=== PATIENT | female | born 1960 | race Caucasian/White ===

== ENCOUNTER 2016-08-25 19:27 | Emergency (ER) | payer OTHER ==
[2016-08-25] MEDS ORDERED: Sodium Chloride 0.9% 1000 ML 1,000 ML IV STA (19:40)
[2016-08-25] MEDS ORDERED: Phenergan 25 MG INJ IV ONE (19:40)
--- NOTE | 2016-08-25 19:58 | ERPHSYRPT ---
- History of Present Illness Time Seen by Provider: 08/25/16 19:30 Source: patient Exam Limitations: no limitations Patient Subjective Stated Complaint: reports some dizziness et inner ear pain since last night and through the day today - states that when she turns her head , it feels like there is glass shattering in her ear - also reports some intermittent confusion x 4 days, as noticed per her son Triage Nursing Assessment: ambulatory to treatment area - limping, slow gait - moves all extremities with mild weakness. alert/oriented x3 - pupils ALEXX: 5mm. skin pwd - no rash/injury. resps easy - non-labored Physician History: FOR THE PAST 4 DAYS PT HAS BEEN CONFUSED; FOR THE PAST 18 HOURS DIZZINESS AND A RIGHT EARACHE. PT DENIES CHEST PAIN, SHORTNESS OF AIR, FEVER. Allergies/Adverse Reactions: sulfamethoxazole [From Bactrim] Allergy (Verified 08/25/16 19:34) Sore Throat roof of mouth raw Home Medications: Cyclobenzaprine HCl 10 mg [Flexeril 10 MG] 10 mg PO TID PRN 05/01/14 [ History] Famotidine 20 mg [Pepcid 20 MG] 20 mg PO BID 05/01/14 [History] Gabapentin 600 mg PO BID 05/01/14 [History] Duloxetine HCl 30 mg [Cymbalta 30 MG Capsule] 30 mg PO DAILY 12/10/14 [ History] Levothyroxine Sodium 100 mcg PO DAILY 06/11/15 [History] Meloxicam 15 mg [Meloxicam 15 MG] 7.5 mg PO BID PRN PRN 06/11/15 [History] Omeprazole 20 MG [Prilosec 20 mg] 20 mg PO BID 06/11/15 [History] Metformin HCl 500 mg [Glucophage 500 MG] 500 mg PO BID 01/13/16 [History] Fluvoxamine Maleate 100 mg PO HS 02/20/16 [History] Lurasidone HCl [Latuda] 80 mg PO HS 02/20/16 [History] Nitroglycerin [Nitrostat] 0.4 mg SL PRN 02/20/16 [History] Hx Tetanus, Diphtheria Vaccination/Date Given: Yes Hx Influenza Vaccination/Date Given: No Hx Pneumococcal Vaccination/Date Given: No Immunizations Up to Date: Yes - Review of Systems Ears, Nose, & Throat: Ear Pain Neurological: Dizziness, Other (CONFUSION) All Other Systems: Reviewed and Negative - Past Medical History Pertinent Past Medical History: Yes Neurological History: No Pertinent History ENT History: Cataracts Cardiac History: Arrhythmia Respiratory History: COPD Endocrine Medical History: Diabetes Type II, Hypothyroidism Musculoskeletal History: Degenerative Disk Disease, Osteoporosis, Rheumatoid Arthritis GI Medical History: Irritable Bowel History: Other Psycho-Social History: Depression Female Reproductive Disorders: Other Other Medical History: PVCs, cath's self to void, since back broken in 2001 pt can not void on her own, schitzoaffective disorder - Past Surgical History Past Surgical History: Yes Neuro Surgical History: No Pertinent History Cardiac: No Pertinent History Respiratory: No Pertinent History Gastrointestinal: Cholecystectomy Genitourinary: No Pertinent History Musculoskeletal: Orthopedic Surgery Female Surgical History: Hysterectomy, Tubal Ligation Other Surgical History: THROAT CYST - LUMBAR - lul CARPEL TUNNEL - CATARACT REMOVAL - bilateral, cervical Ca - Social History Smoking Status: Former smoker Exposure to second hand smoke: No Drug Use: none Patient Lives Alone: No Significant Family History: no pertinent family hx - Female History Hx Last Menstrual Period: n/a Hx Now: No - Nursing Vital Signs Nursing Vital Signs: Initial Vital Signs Temperature 99.1 F Pulse Rate 76 Respiratory Rate 14 Blood Pressure [] 106/46 Pain Intensity 0 - Physical Exam General Appearance: alert Eye Exam: PERRL/EOMI Ears, Nose, Throat Exam: TMs normal, dry mucous membranes Neck Exam: normal inspection Respiratory Exam: lungs clear Cardiovascular Exam: normal heart sounds Gastrointestinal/Abdomen Exam: soft, normal bowel sounds Back Exam: normal range of motion Extremity Exam: normal range of motion, No pedal edema Neurologic Exam: alert, cooperative, normal mood/affect, other (ORIENTED X3) Skin Exam: No rash SpO2 Interpretation: normal SpO2: 95 Oxygen Delivery: Room Air - Course Nursing assessment & vital signs reviewed: Yes EKG Interpreted by Me: RATE (74), Sinus Rhythm, NORMAL AXIS, NORMAL INTERVALS - Radiology Exams Chest X-ray Interpretation: Interpreted by me, No Pneumonia Ordered Tests: Active Orders 24 hr Category Date Time Status ACCUCHECK [Accucheck] STAT Care 08/25/16 19:45 Active EKG-ER Only STAT Care 08/25/16 19:40 Active IV Insertion STAT Care 08/25/16 19:40 Active cath [Cath for Specimen-Straight] STAT Care 08/25/16 19:56 Active CHEST 1 VIEW (PORTABLE) Stat Exams 08/25/16 19:40 Taken AMYLASE Stat Lab 08/25/16 20:02 Completed CBC W DIFF Stat Lab 08/25/16 20:02 Completed CMP Stat Lab 08/25/16 20:02 Completed LIPASE Stat Lab 08/25/16 20:02 Completed MAGNESIUM Stat Lab 08/25/16 20:02 Completed [place] Screen Stat Lab 08/25/16 20:02 Completed TROPONIN Stat Lab 08/25/16 20:02 Completed Urine Triage Profile Stat Lab 08/25/16 19:55 Completed Medication Summary Generic Name Dose Route Start Last Admin Trade Name Freq PRN Reason Stop Dose Admin Magnesium Sulfate/Dextrose 100 mls @ 200 mls/hr 08/25/16 20:45 Magnesium 1 Gm / 100 Ml D5w IV 08/25/16 21:14 STAT ONE Discontinued Medications Generic Name Dose Route Start Last Admin Trade Name Freq PRN Reason Stop Dose Admin Sodium Chloride 1,000 mls @ 999 mls/hr 08/25/16 19:40 08/25/16 20:07 Sodium Chloride 0.9% 1000 Ml IV 08/25/16 20:40 999 mls/hr .Q1H1M STA Administration Sodium Chloride Confirm 08/25/16 20:05 Sodium Chloride 0.9% 1000 Ml Administered 08/25/16 20:06 Dose 1,000 mls @ ud .ROUTE .STK-MED ONE Promethazine HCl 12.5 mg 08/25/16 19:40 08/25/16 20:09 Phenergan 25 Mg Inj IV 08/25/16 19:41 12.5 mg STAT ONE Administration Promethazine HCl Confirm 08/25/16 20:05 Phenergan 25 Mg Inj Administered 08/25/16 20:06 Dose 25 mg .ROUTE .STK-MED ONE Lab/Rad Data: Laboratory Result Diagrams 08/25/16 20:02 08/25/16 20:02 Laboratory Results 08/25/16 08/25/16 08/25/16 Range/Units 20:02 20:02 20:02 WBC 5.6 (4.0-10.5) K/mm3 RBC 5.47 H (4.1-5.4) M/mm3 Hgb 14.1 (12.0-16.0) gm/dl Hct 43.6 (35-47) % MCV 79.7 (78-100) fl MCH 25.7 L (26-32) pg MCHC 32.3 (32-36) g/dl RDW 16.7 H (11.5-14.0) % Plt Count 203 (150-450) K/mm3 MPV 9.6 H (6-9.5) fl Gran % 61.6 (36.0-66.0) % Lymphocytes % 27.8 (24.0-44.0) % Monocytes % 5.6 (0.0-12.0) % Eosinophils % 4.3 (0.00-5.0) % Basophils % 0.7 (0.0-0.4) % Basophils # 0.04 (0-0.4) Sodium 137 (136-145) mEq/L Potassium 3.6 (3.5-5.1) mEq/L Chloride 100 (98-107) mEq/L Carbon Dioxide 27.8 (21-32) mEq/L Anion Gap 12.5 (5-15) MEQ/L BUN 10 (9-20) mg/dL Creatinine 1.22 (0.55-1.30) mg/dl Estimated GFR 49 ML/MIN Glucose 125 H (70-110) MG/DL Calcium 9.0 (8.5-10.1) mg/dL Magnesium 1.4 L (1.8-2.4) mg/dL Total Bilirubin 0.3 (0.2-1.0) mg/dL AST 36 (15-37) U/L ALT 39 (12-78) U/L Alkaline Phosphatase 89 (46-116) U/L Troponin I < 0.017 (0.000-0.056) ng/ml Serum Total Protein 8.1 (6.4-8.2) gm/dL Albumin 3.4 (3.4-5.0) g/dL Amylase 50 (25-115) U/L Lipase 133 (73-393) U/L Urine Opiates Level (NEGATIVE) Ur Methadone (NEGATIVE) Urine Barbiturates (NEGATIVE) Ur Phencyclidine (PCP) (NEGATIVE) Urine Amphetamine (NEGATIVE) U Benzodiazepine Level (NEGATIVE) Urine Cocaine (NEGATIVE) Urine Marijuana (THC) (NEGATIVE) Monoscreen NEGATIVE (Negative) 08/25/16 Range/Units 19:55 WBC (4.0-10.5) K/mm3 RBC (4.1-5.4) M/mm3 Hgb (12.0-16.0) gm/dl Hct (35-47) % MCV (78-100) fl MCH (26-32) pg MCHC (32-36) g/dl RDW (11.5-14.0) % Plt Count (150-450) K/mm3 MPV (6-9.5) fl Gran % (36.0-66.0) % Lymphocytes % (24.0-44.0) % Monocytes % (0.0-12.0) % Eosinophils % (0.00-5.0) % Basophils % (0.0-0.4) % Basophils # (0-0.4) Sodium (136-145) mEq/L Potassium (3.5-5.1) mEq/L Chloride (98-107) mEq/L Carbon Dioxide (21-32) mEq/L Anion Gap (5-15) MEQ/L BUN (9-20) mg/dL Creatinine (0.55-1.30) mg/dl Estimated GFR ML/MIN Glucose (70-110) MG/DL Calcium (8.5-10.1) mg/dL Magnesium (1.8-2.4) mg/dL Total Bilirubin (0.2-1.0) mg/dL AST (15-37) U/L ALT (12-78) U/L Alkaline Phosphatase (46-116) U/L Troponin I (0.000-0.056) ng/ml Serum Total Protein (6.4-8.2) gm/dL Albumin (3.4-5.0) g/dL Amylase (25-115) U/L Lipase (73-393) U/L Urine Opiates Level NEG. (NEGATIVE) Ur Methadone NEG. (NEGATIVE) Urine Barbiturates NEG. (NEGATIVE) Ur Phencyclidine (PCP) NEG. (NEGATIVE) Urine Amphetamine NEG. (NEGATIVE) U Benzodiazepine Level NEG. (NEGATIVE) Urine Cocaine NEG. (NEGATIVE) Urine Marijuana (THC) NEG. (NEGATIVE) Monoscreen (Negative) - Departure Time of Disposition: 20:49 Departure Disposition: Home Clinical Impression: DIZZINESS, DM, HYPOTHYROIDISM, RA, IBS, DEPRESSION, SCHIZOAFFECTIVE DISORDER, HYPOMAGNESEMIA, COPD Condition: Fair Critical Care Time: No Referrals: ZAN JIN [Primary Care Provider] - Instructions: Vertigo Additional Instructions: FOLLOW UP WITH PRIVATE DOCTOR TOMORROW. Prescriptions: Meclizine HCl 25 mg [Antivert 25 mg] 25 mg PO Q8H PRN PRN #30 tablet PRN Reason: Dizziness
[2016-08-25 20:05] LABS: BASOPHIL % 0.7 % (0.0-0.4); Eosinophil % 4.3 % (0.00-5.0); Granulocytes % 61.6 % (36.0-66.0); Lymphocytes % 27.8 % (24.0-44.0); Mean Cell Volume 79.7 fl (78-100); Mean Platelet Volume 9.6 fl (6-9.5); Monocytes % 5.6 % (0.0-12.0); Platelet Count 203 K/mm3 (150-450); Red Blood Count 5.47 M/mm3 (4.1-5.4); Red Cell Distribution Width 16.7 % (11.5-14.0); White Blood Count 5.6 K/mm3 (4.0-10.5)
[2016-08-25] MEDS ORDERED: Phenergan 25 MG INJ ONE (20:05)
[2016-08-25] MEDS ORDERED: Sodium Chloride 0.9% 1000 ML 1,000 ML ONE (20:05)
[2016-08-25 20:06] LABS: Mean Corpuscular Hemoglobin 25.7 pg (26-32)
[2016-08-25 20:28] LABS: ALBUMIN 3.4 g/dL (3.4-5.0); ALKALINE PHOSPHATASE 89 U/L (46-116); ANION GAP 12.5 MEQ/L (5-15); BILIRUBIN,TOTAL 0.3 mg/dL (0.2-1.0); BLOOD UREA NITROGEN 10 mg/dL (9-20); CHLORIDE 100 mEq/L (98-107); Carbon Dioxide 27.8 mEq/L (21-32); Glucose 125 MG/DL (70-110); LIPASE 133 U/L (73-393); MAGNESIUM 1.4 mg/dL (1.8-2.4); Potassium 3.6 mEq/L (3.5-5.1); SGOT/AST 36 U/L (15-37); SGPT/ALT 39 U/L (12-78); SODIUM 137 mEq/L (136-145); Total Protein 8.1 gm/dL (6.4-8.2)
[2016-08-25 20:31] LABS: TROPONIN < 0.017 ng/ml (0.000-0.056)
[2016-08-25] MEDS ORDERED: Magnesium 1 Gm / 100 Ml D5W*** 100 ML IV ONE ×2 (20:45→20:50)
[2016-08-25 21:07] LABS: Collection Type CLEAN CATCH; Ph 5.5 (5-6)
[2016-08-25 21:08] LABS: Bacteria FEW /HPF (NEGATIVE); COMPLETE URINE MICROSCOPIC? YES; Epithelial Cells FEW /HPF (FEW)
[2016-08-25] MEDS ORDERED: Macrobid 100MG Capsule PO ONE (21:14)
[2016-08-25] MEDS ORDERED: Macrobid 100MG Capsule ONE (21:18)
[2016-08-25 21:26] VITALS: BP 104/62; PULSE 83; O2SAT 98
--- NOTE | 2016-08-26 09:30 | XRAY ---
Indication: Dizziness. Comparison: May 14, 2010 Portable chest remains clear. Heart is not enlarged. Vascularity normal. Bony thorax intact. Impression: Stable nonacute chest.
== END 2016-08-25 21:26 | disposition home or self-care (01) ==
LOC: ED 19:27
DX: N39.0 Urinary tract infection, site not specified (principal); R42 Dizziness and giddiness; E11.9 Type 2 diabetes mellitus without complications; E03.9 Hypothyroidism, unspecified; M06.9 Rheumatoid arthritis, unspecified; K58.9 Irritable bowel syndrome, unspecified; F32.9 Major depressive disorder, single episode, unspecified; F20.9 Schizophrenia, unspecified; E83.42 Hypomagnesemia; J44.9 Chronic obstructive pulmonary disease, unspecified; R41.0 Disorientation, unspecified; H92.01 Otalgia, right ear; Z79.84 Long term (current) use of oral hypoglycemic drugs; Z79.899 Other long term (current) drug therapy
CPT/HCPCS: 36000; 36415; 71010; 80053; 80307; 81000; 82150; 82962; 83690; 83735; 84484; 85025; 86308; 87086; 93005; 96360; 96361; 96365; 96374; 99284; J2550; J3475; P9612

== ENCOUNTER 2017-04-08 14:43 | Emergency (ER) | payer MEDICAID, OTHER ==
[2017-04-08 14:50] VITALS: PULSE 80; O2SAT 94
[2017-04-08] MEDS ORDERED: TORAdol 30 mg Injection IM ONE (14:57)
[2017-04-08] MEDS ORDERED: Norflex 60 MG/2 ML IM ONE (14:58)
--- NOTE | 2017-04-08 15:02 | ERPHSYRPT ---
- History of Present Illness Time Seen by Provider: 04/08/17 14:53 Source: patient Patient Subjective Stated Complaint: back pain had back surgery in 2001 this pain feels identicle to that Triage Nursing Assessment: patietn brought in by ambulance able to slide over to bed form [place], alert and orientedx3, pupilsperrla3, lung sounds clear, pulses present bialteral radius and pedal, bowel sounds present x4, no deformities noted on back so freckles and a mole no other abnormalities noted. Physician History: CC: back pain Hx: 56 y/o patient of Dr Bradshaw with remote hx of lumbar fusion surgery. She has low back pain to her legs since Saturday (3 days). No fever or chills. Chronic incontinence is unchanged. Remote hx of cervical cancer. No abd pain. Pain moderate severe and worse with movement. Aching in nature. She takes ultram , norco, and flexeril. She has diabetes and reports good control. Back Pain Location: lumbar spine Severity of Pain-Max: moderate Severity of Pain-Current: moderate Allergies/Adverse Reactions: sulfamethoxazole [From Bactrim] Allergy (Verified 08/25/16 19:34) Sore Throat roof of mouth raw Home Medications: Cyclobenzaprine HCl 10 mg [Cyclobenzaprine 10 MG] 10 mg PO TID PRN [History] Famotidine 20 mg [Pepcid 20 MG] 20 mg PO BID 05/01/14 [History] Gabapentin 600 mg PO BID 05/01/14 [History] Duloxetine HCl 30 mg [Cymbalta 30 MG Capsule] 30 mg PO DAILY 12/10/14 [ History] Levothyroxine Sodium 100 mcg PO DAILY 06/11/15 [History] Meloxicam 15 mg [Meloxicam 15 MG] 7.5 mg PO BID PRN PRN 06/11/15 [History] Omeprazole 20 MG [Prilosec 20 mg] 20 mg PO BID 06/11/15 [History] Metformin HCl 500 mg [Glucophage 500 MG] 500 mg PO BID 01/13/16 [History] Fluvoxamine Maleate 100 mg PO HS 02/20/16 [History] Lurasidone HCl [Latuda] 80 mg PO HS 02/20/16 [History] Nitroglycerin [Nitrostat] 0.4 mg SL PRN 02/20/16 [History] Hx Tetanus, Diphtheria Vaccination/Date Given: Yes Hx Influenza Vaccination/Date Given: Yes Hx Pneumococcal Vaccination/Date Given: No Immunizations Up to Date: Yes - Review of Systems Constitutional: No Fever, No Chills Eyes: No Symptoms Ears, Nose, & Throat: No Symptoms Respiratory: No Cough, No Dyspnea Cardiac: No Chest Pain Abdominal/Gastrointestinal: No Abdominal Pain, No Nausea, No Vomiting Genitourinary Symptoms: No Dysuria, No Hematuria, No Flank Pain Musculoskeletal: Back Pain Skin: No Rash Neurological: No Dizziness, No Focal Weakness, No Headache, No Parasthesia All Other Systems: Reviewed and Negative - Past Medical History Pertinent Past Medical History: Yes Neurological History: Other ENT History: Cataracts Cardiac History: Hypertension Respiratory History: Pneumonia Endocrine Medical History: Diabetes Type II, Hypothyroidism Musculoskeletal History: Other GI Medical History: Irritable Bowel History: Other Psycho-Social History: Depression Female Reproductive Disorders: Other Other Medical History: Lumbar Fusion. Diabetes type 2 - Past Surgical History Past Surgical History: Yes Neuro Surgical History: No Pertinent History Cardiac: No Pertinent History Respiratory: No Pertinent History Gastrointestinal: Cholecystectomy Genitourinary: No Pertinent History Musculoskeletal: Orthopedic Surgery Female Surgical History: Hysterectomy, Tubal Ligation Other Surgical History: THROAT CYST - LUMBAR - lul CARPEL TUNNEL - CATARACT REMOVAL - bilateral, cervical Ca - Social History Smoking Status: Never smoker Exposure to second hand smoke: No Drug Use: none Patient Lives Alone: Yes Significant Family History: no pertinent family hx - Female History Hx Now: No - Nursing Vital Signs Nursing Vital Signs: Initial Vital Signs Temperature 97.9 F 04/08/17 14:43 Pulse Rate 80 04/08/17 14:43 Respiratory Rate 20 04/08/17 14:43 O2 Sat by Pulse Oximetry 94 L 04/08/17 14:43 Pain Scale Pain Intensity [Posterior Back 9 ] Pain Intensity 9 - Physical Exam General Appearance: alert Eye Exam: PERRL/EOMI Ears, Nose, Throat Exam: normal ENT inspection, moist mucous membranes Neck Exam: normal inspection, non-tender, supple Respiratory Exam: normal breath sounds Cardiovascular Exam: regular rate/rhythm Gastrointestinal Exam: soft, No tenderness, No distention Back Exam: normal inspection, vertebral tenderness (low lumbar) Extremity Exam: normal inspection, normal range of motion Neurologic Exam: alert, oriented x 3, cooperative, sensation nml, No motor deficits Skin Exam: warm, dry, No rash SpO2 Interpretation: normal SpO2: 94 Oxygen Delivery: Room Air - Course Nursing assessment & vital signs reviewed: Yes - Radiology Exams lumbar X-ray Interpretation: Reviewed by me (straightening lumbar, no fx or subuxation) Ordered Tests: Active Orders 24 hr Category Date Time Status LUMBAR LIMITED (2 OR 3 VIEWS) Stat Exams 04/08/17 14:58 Taken Medication Summary Discontinued Medications Generic Name Dose Route Start Last Admin Trade Name Aayush PRN Reason Stop Dose Admin Ketorolac Tromethamine 30 mg 04/08/17 14:57 04/08/17 15:09 Toradol 30 Mg Injection IM 04/08/17 14:58 30 mg STAT ONE Administration Ketorolac Tromethamine Confirm 04/08/17 15:04 Toradol 30 Mg Injection Administered 04/08/17 15:05 Dose 30 mg .ROUTE .STK-MED ONE Orphenadrine Citrate 60 mg 04/08/17 14:58 04/08/17 15:09 Norflex 60 Mg/2 Ml IM 04/08/17 14:59 60 mg STAT ONE Administration Orphenadrine Citrate Confirm 04/08/17 15:04 Norflex 60 Mg/2 Ml Administered 04/08/17 15:05 Dose 60 mg .ROUTE .STK-MED ONE - Progress Progress Note: 04/08/17 16:35 Some better after norflex and toradol. She has appt with Dr Bradshaw this week. Will release with instr. Counseled pt/family regarding: diagnosis, need for follow-up, rad results - Departure Time of Disposition: 16:36 Departure Disposition: Home Clinical Impression: Lumbago Qualifiers: Chronicity: acute Back pain laterality: midline Sciatica presence: without sciatica Qualified Code(s): M54.5 - Low back pain Condition: Stable Critical Care Time: No Referrals: ZAN BRADSHAW [Primary Care Provider] - Instructions: Low Back Pain Additional Instructions: BACK INJURY 1. May apply moist heat frequently for relief of pain. Take care not to burn the skin. Do not use heat for more than 30 minutes at a time. 2. Try to sleep on a firm bed, flat on your back. 3. If no improvement is noticed in 2-3 days, follow up with your family physician. 4. If you notice any numbness, tingling, weakness, or problems with your bowel or bladder, you should call your family physician or return to the emergency department. \Warm compresses. Rx norflex to use instead of flexeril. Take your norco and ultram as already prescribed. Follow up with Dr bradshaw this week. Prescriptions: Orphenadrine Citrate 100 mg [Norflex 100 MG Tablet] 1 tab PO BID #10 tab
[2017-04-08] MEDS ORDERED: Norflex 60 MG/2 ML ONE (15:04)
[2017-04-08] MEDS ORDERED: TORAdol 30 mg Injection ONE (15:04)
[2017-04-08 15:09] VITALS: BP 114/68
--- NOTE | 2017-04-08 21:23 | XRAY ---
Indication: Back pain. Comparison: None 3 views of the lumbar spine demonstrates 4 lumbar vertebral segments with partially sacralized L5 and hypoplastic T12 ribs in normal alignment with mild multilevel anterior endplate spurring, mild L2-L3/L4-L5 disc space narrowing, mild scattered vascular calcifications, and moderate scattered colonic fecal debris. No other bony, articular, or soft tissue abnormalities. Impression: Nonacute lumbar spine with chronic features as detailed. Incidental fecal stasis.
== END 2017-04-08 16:41 | disposition home or self-care (01) ==
LOC: ED 14:43
DX: M54.5 Low back pain (principal)
CPT/HCPCS: 72100; 96372; 99284; J1885; J2360

== ENCOUNTER 2018-01-20 15:08 | Observation (INO) | payer MEDICAID ==
--- NOTE | 2018-01-20 15:55 | ERPHSYRPT ---
- History of Present Illness Time Seen by Provider: 01/20/18 15:46 Source: patient, family Exam Limitations: no limitations Physician History: The patient is a 57-year-old obese female with her son complaining that her air conditioning went out a few days ago. Since that time, the temperature outside is been in the mid to high 90. She had 2 fans tried to keep her cool. Today she just has become very sluggish and tired. Her heart rate is fast. She has not urinated very much. She has been trying to drink water. She denies chest pain or shortness of breath. Her past medical history is significant for hypertension, diabetes, GERD, coronary artery disease. Timing/Duration: day(s) (2) Severity: moderate Modifying Factors: Improves With: nothing Associated Symptoms: nausea, malaise Allergies/Adverse Reactions: sulfamethoxazole [From Bactrim] Allergy (Verified 01/20/18 15:48) Sore Throat roof of mouth raw Home Medications: Cyclobenzaprine HCl 10 mg [Cyclobenzaprine 10 MG] 10 mg PO TID PRN [History] Famotidine 20 mg [Pepcid 20 MG] 20 mg PO BID 05/01/14 [History] Gabapentin 600 mg PO BID 05/01/14 [History] Duloxetine HCl 30 mg [Cymbalta 30 MG Capsule] 30 mg PO DAILY 12/10/14 [ History] Levothyroxine Sodium 100 mcg PO DAILY 06/11/15 [History] Meloxicam 15 mg [Meloxicam 15 MG] 7.5 mg PO BID PRN PRN 06/11/15 [History] Omeprazole 20 MG [Prilosec 20 mg] 20 mg PO BID 06/11/15 [History] Metformin HCl 500 mg [Glucophage 500 MG] 500 mg PO BID 01/13/16 [History] Fluvoxamine Maleate 100 mg PO HS 02/20/16 [History] Lurasidone HCl [Latuda] 80 mg PO HS 02/20/16 [History] Nitroglycerin [Nitrostat] 0.4 mg SL PRN 02/20/16 [History] Hx Tetanus, Diphtheria Vaccination/Date Given: Yes Hx Influenza Vaccination/Date Given: Yes Hx Pneumococcal Vaccination/Date Given: No - Review of Systems Constitutional: Malaise, Weakness Eyes: No Symptoms Ears, Nose, & Throat: No Symptoms Respiratory: No Cough, No Dyspnea Cardiac: No Chest Pain, No Edema, No Syncope Abdominal/Gastrointestinal: Nausea, No Abdominal Pain, No Vomiting, No Diarrhea Genitourinary Symptoms: Other (decreased urination) Musculoskeletal: No Back Pain, No Neck Pain Skin: No Rash Neurological: No Dizziness, No Focal Weakness, No Sensory Changes Psychological: No Symptoms Endocrine: No Symptoms Hematologic/Lymphatic: No Symptoms Immunological/Allergic: No Symptoms All Other Systems: Reviewed and Negative - Past Medical History Pertinent Past Medical History: Yes Neurological History: Other ENT History: Cataracts Cardiac History: Hypertension Respiratory History: Pneumonia Endocrine Medical History: Diabetes Type II, Hypothyroidism Musculoskeletal History: Other GI Medical History: Irritable Bowel History: Other Psycho-Social History: Depression Female Reproductive Disorders: Other Other Medical History: Lumbar Fusion. Diabetes type 2 - Past Surgical History Past Surgical History: Yes Neuro Surgical History: No Pertinent History Cardiac: No Pertinent History Respiratory: No Pertinent History Gastrointestinal: Cholecystectomy Genitourinary: No Pertinent History Musculoskeletal: Orthopedic Surgery Female Surgical History: Hysterectomy, Tubal Ligation Other Surgical History: THROAT CYST - LUMBAR - lul CARPEL TUNNEL - CATARACT REMOVAL - bilateral, cervical Ca - Social History Smoking Status: Never smoker Exposure to second hand smoke: No Drug Use: none Patient Lives Alone: Yes Significant Family History: no pertinent family hx - Nursing Vital Signs Nursing Vital Signs: Initial Vital Signs Temperature 99.7 F 01/20/18 15:18 Pulse Rate 140 H 01/20/18 15:18 Respiratory Rate 24 01/20/18 15:18 Blood Pressure 121/92 01/20/18 15:18 O2 Sat by Pulse Oximetry 99 01/20/18 15:18 Pain Scale Pain Intensity 0 - Physical Exam General Appearance: no apparent distress, alert Eye Exam: PERRL/EOMI, eyes nml inspection Ears, Nose, Throat Exam: normal ENT inspection, TMs normal, pharynx normal, moist mucous membranes Neck Exam: normal inspection, non-tender, supple, full range of motion Respiratory Exam: normal breath sounds, lungs clear, No respiratory distress Cardiovascular Exam: tachycardia Gastrointestinal/Abdomen Exam: soft, normal bowel sounds, No tenderness, No mass Pelvic Exam: not done Rectal Exam: not done Back Exam: normal inspection, normal range of motion, No CVA tenderness, No vertebral tenderness Extremity Exam: normal inspection Neurologic Exam: alert, oriented x 3, cooperative, normal mood/affect, nml cerebellar function, nml station & gait, sensation nml, No motor deficits Skin Exam: normal color, warm, dry, No rash Lymphatic Exam: No adenopathy SpO2 Interpretation: normal Oxygen Delivery: Room Air Ordered Tests: Active Orders 24 hr Category Date Time Status EKG-ER Only STAT Care 01/20/18 15:57 Active IV Insertion STAT Care 01/20/18 15:57 Active CBC W DIFF Stat Lab 01/20/18 16:08 Completed CMP Stat Lab 01/20/18 16:08 Completed Lactic Acid Stat Lab 01/20/18 16:06 Results TROPONIN Q3H Lab 01/20/18 16:08 Completed TROPONIN Q3H Lab 01/20/18 19:00 Ordered TROPONIN Q3H Lab 01/20/18 22:00 Ordered TROPONIN Q3H Lab 01/21/18 01:00 Ordered TROPONIN Q3H Lab 01/21/18 04:00 Ordered Medication Summary Discontinued Medications Generic Name Dose Route Start Last Admin Trade Name Freq PRN Reason Stop Dose Admin Sodium Chloride 1,000 mls @ 999 mls/hr 01/20/18 15:57 01/20/18 16:14 Sodium Chloride 0.9% 1000 Ml IV 01/20/18 16:57 999 mls/hr .Q1H1M STA Administration Sodium Chloride Confirm 01/20/18 16:09 Sodium Chloride 0.9% 1000 Ml Administered 01/20/18 16:10 Dose 1,000 mls @ ud .ROUTE .STK-MED ONE Lab/Rad Data: Laboratory Result Diagrams 01/20/18 16:08 01/20/18 16:08 Laboratory Results 01/20/18 01/20/18 01/20/18 Range/Units 16:08 16:08 16:08 WBC 10.0 (4.0-10.5) K/mm3 RBC 6.29 H* (4.1-5.4) M/mm3 Hgb 13.8 (12.0-16.0) gm/dl Hct 43.3 (35-47) % MCV 68.8 L (78-100) fl MCH 21.9 L (26-32) pg MCHC 31.9 L (32-36) g/dl RDW 21.7 H (11.5-14.0) % Plt Count 397 (150-450) K/mm3 MPV 10.2 H (6-9.5) fl Gran % 76.0 H (36.0-66.0) % Eos # (Auto) 0.03 (0-0.5) Absolute Lymphs (auto) 1.86 (1.0-4.6) Absolute Monos (auto) 0.48 (0.0-1.3) Lymphocytes % 18.7 L (24.0-44.0) % Monocytes % 4.8 (0.0-12.0) % Eosinophils % 0.3 (0.00-5.0) % Basophils % 0.2 (0.0-0.4) % Absolute Granulocytes 7.57 H (1.4-6.9) Basophils # 0.02 (0-0.4) Sodium 136 L (137-145) mmol/L Potassium 3.8 (3.5-5.1) mmol/L Chloride 96 L (98-107) mmol/L Carbon Dioxide 24 (22-30) mmol/L Anion Gap 19.7 H (5-15) MEQ/L BUN 13 (7-17) mg/dL Creatinine 1.47 H (0.52-1.04) mg/dL Estimated GFR 39.1 ML/MIN Glucose 170 H (74-106) mg/dL Lactic Acid (0.4-2.0) Calcium 9.6 (8.4-10.2) mg/dL Total Bilirubin 1.80 H (0.2-1.3) mg/dL AST 35 (14-36) U/L ALT 29 (0-35) U/L Alkaline Phosphatase 94 (38-126) U/L Troponin I < 0.012 (0.000-0.034) ng/mL Serum Total Protein 8.8 H (6.3-8.2) g/dL Albumin 4.2 (3.5-5.0) g/dL 01/20/18 Range/Units 16:06 WBC (4.0-10.5) K/mm3 RBC (4.1-5.4) M/mm3 Hgb (12.0-16.0) gm/dl Hct (35-47) % MCV (78-100) fl MCH (26-32) pg MCHC (32-36) g/dl RDW (11.5-14.0) % Plt Count (150-450) K/mm3 MPV (6-9.5) fl Gran % (36.0-66.0) % Eos # (Auto) (0-0.5) Absolute Lymphs (auto) (1.0-4.6) Absolute Monos (auto) (0.0-1.3) Lymphocytes % (24.0-44.0) % Monocytes % (0.0-12.0) % Eosinophils % (0.00-5.0) % Basophils % (0.0-0.4) % Absolute Granulocytes (1.4-6.9) Basophils # (0-0.4) Sodium (137-145) mmol/L Potassium (3.5-5.1) mmol/L Chloride (98-107) mmol/L Carbon Dioxide (22-30) mmol/L Anion Gap (5-15) MEQ/L BUN (7-17) mg/dL Creatinine (0.52-1.04) mg/dL Estimated GFR ML/MIN Glucose (74-106) mg/dL Lactic Acid 3.8 H (0.4-2.0) Calcium (8.4-10.2) mg/dL Total Bilirubin (0.2-1.3) mg/dL AST (14-36) U/L ALT (0-35) U/L Alkaline Phosphatase (38-126) U/L Troponin I (0.000-0.034) ng/mL Serum Total Protein (6.3-8.2) g/dL Albumin (3.5-5.0) g/dL - Progress Progress: improved Discussed with : Augustine Will see patient in: hospital (observation) Counseled pt/family regarding: lab results, diagnosis - Departure Time of Disposition: 17:04 Departure Disposition: Home Clinical Impression: Heat exhaustion, Dehydration Condition: Stable Critical Care Time: No Referrals: ZAN JIN [Primary Care Provider] -
[2018-01-20] MEDS ORDERED: Sodium Chloride 0.9% 1000 ML 1,000 ML IV STA ×2 (15:57→20:56)
[2018-01-20] MEDS ORDERED: Sodium Chloride 0.9% 1000 ML 1,000 ML ONE (16:09)
[2018-01-20 16:11] LABS: BASOPHIL % 0.2 % (0.0-0.4); Basophil (Absolute #) 0.02 (0-0.4); Eosinophil % 0.3 % (0.00-5.0); Eosinophil (Absolute #) 0.03 (0-0.5); Granulocyte Absolute (ANC) 7.57 (1.4-6.9); Hematocrit 43.3 % (35-47); Hemoglobin 13.8 gm/dl (12.0-16.0); Lymphocyte (Absolute #) 1.86 (1.0-4.6); Lymphocytes % 18.7 % (24.0-44.0); Mean Cell Volume 68.8 fl (78-100); Mean Corpuscular Hemoglobin 21.9 pg (26-32); Mean Corpuscular Hgb Concent. 31.9 g/dl (32-36); Mean Platelet Volume 10.2 fl (6-9.5); Monocyte (Absolute #) 0.48 (0.0-1.3); Monocytes % 4.8 % (0.0-12.0); Platelet Count 397 K/mm3 (150-450); Red Blood Count 6.29 M/mm3 (4.1-5.4); Red Cell Distribution Width 21.7 % (11.5-14.0)
[2018-01-20 16:20] LABS: Lactic Acid 3.8 (0.4-2.0)
[2018-01-20 16:32] LABS: ALBUMIN 4.2 g/dL (3.5-5.0); ANION GAP 19.7 MEQ/L (5-15); BILIRUBIN,TOTAL 1.8 mg/dL (0.2-1.3); Calcium 9.6 mg/dL (8.4-10.2); Creatinine 1 1.47 mg/dL (0.52-1.04); Potassium 3.8 mmol/L (3.5-5.1); Total Protein 8.8 g/dL (6.3-8.2)
[2018-01-20 17:26] LABS: Lactic Acid 2.1 (0.4-2.0)
[2018-01-20] MEDS ORDERED: Zofran 4 MG/2 ML VIAL IV PRN (19:27)
[2018-01-20] MEDS ORDERED: TYLENOL 325 MG PO PRN (19:27)
[2018-01-20] MEDS ORDERED: Sodium Chloride 0.9% 1000 ML 1,000 ML IV SCH (19:27)
--- NOTE | 2018-01-20 20:59 | PCM.HP ---
History of Present Illness - Chief Complaint Chief Complaint: dehydration History of Present Illness: is a 57 year old female pt of mine from [facility] with diabetes and COPD who came into the ER wiht dehydration. Her A/c went out this week and yesterday she started feeling poorly; she started drinking more water at that time but wasn't urinating much and wasn't feeling better so came to the ER> Her HR was 140 bpm. After 1L of fluid bolus, it was 124. She states she hasn't been checking her BS because her test strips and she hasn't been able to get new ones. - Review of Systems Constitutional: No Fever (temps to 99.4) Cardiac: Syncope (unsure if passed out while on the stool yesterday) Abdominal/Gastrointestinal: Appetite Changes (unable to eat well x 1d) Musculoskeletal: Arthralgias (chronic) Psychological: Anxiety (chronic), Depression (chronic) All Other Systems: Reviewed and Negative Medications & Allergies Home Medications: Home Medication List Famotidine 20 mg [Pepcid 20 MG] 20 mg PO BID 01/20/18 [History Confirmed 01/20/18] Gabapentin 600 mg PO BID 01/20/18 [History Confirmed 01/20/18] Levothyroxine Sodium 112 Mcg [Synthroid 112 Mcg] 112 mcg PO DAILY 01/20/18 [History Confirmed 01/20/18] Metformin HCl 500 mg [Glucophage 500 MG] 500 mg PO BID 01/20/18 [History Confirmed 01/20/18] Metoprolol Succinate 100 mg [Toprol Xl 100 MG] 100 mg PO DAILY 01/20/18 [ History Confirmed 01/20/18] Omeprazole 20 MG [Prilosec 20 mg] 20 mg PO DAILY 01/20/18 [History Confirmed ] Allergies/Adverse Reactions: Allergies Allergy/AdvReac Type Severity Reaction Status Date / Time sulfamethoxazole Allergy Sore Throat Verified 01/20/18 15:48 [From Bactrim] - Past Medical History Past Medical History: Yes Neurological History: Other ENT History: Cataracts Cardiac History: Hypertension Respiratory History: Pneumonia Endocrine Medical History: Diabetes Type II, Hypothyroidism Musculoskelatal History: Other GI Medical History: Irritable Bowel History: Other Pyscho-Social History: Depression Reproductive Disorders: Other Comment: Lumbar Fusion. Diabetes type 2 - Female History Hx Last Menstrual Period: yakelin Are you now?: No - Past Surgical History Past Surgical History: Yes Neuro Surgical History: No Pertinent History Cardiac History: No Pertinent History Respiratory Surgery: No Pertinent History GI Surgical History: Cholecystectomy Genitourinary Surgical Hx: No Pertinent History Musculskeletal Surgical Hx: Orthopedic Surgery Female Surgical History: Hysterectomy, Tubal Ligation Other Surgical History: THROAT CYST - LUMBAR - lul CARPEL TUNNEL - CATARACT REMOVAL - bilateral, cervical Ca - Social History Smoking Status: Never smoker Exposure to second hand smoke: No Alcohol: None Drug Use: none Significant Family History: no pertinent family hx - Physical Exam Vital Signs: Vital Signs - 24 hr Temp Pulse Resp BP Pulse Ox 01/20/18 19:00 124 H 20 145/102 95 01/20/18 17:23 124 H 22 132/84 95 01/20/18 15:18 99.7 F 140 H 24 121/92 99 General Appearance: no apparent distress, obese Neurologic Exam: alert, oriented x 3, cooperative Eye Exam: eyes nml inspection Ears, Nose, Throat Exam: dry mucous membranes, other (edentulous) Neck Exam: normal inspection, non-tender, No lymphadenopathy Respiratory Exam: normal breath sounds, lungs clear, No crackles/rales, No rhonchi, No wheezing Cardiovascular Exam: regular rate/rhythm, normal heart sounds, No murmur Gastrointestinal/Abdomen Exam: soft, normal bowel sounds, No tenderness, No distention, No mass, No guarding, No rebound Extremity Exam: normal inspection, No pedal edema, No swelling Skin Exam: normal color, warm, dry, No rash Assessment/Plan (1) Dehydration Current Visit: Yes Status: Acute Assessment & Plan: I will give her another L of fluid in a bolus then run NS at 125cc/hr overnight. Labs to repeat in a.m. Code(s): E86.0 - DEHYDRATION (2) Acute renal injury Current Visit: Yes Status: Acute Assessment & Plan: Cr 1.47 - recheck in a.m. Code(s): N17.9 - ACUTE KIDNEY FAILURE, UNSPECIFIED (3) Heat exhaustion Current Visit: Yes Status: Acute Qualifiers: Encounter type: initial encounter Qualified Code(s): T67.5XXA - Heat exhaustion, unspecified, initial encounter Code(s): T67.5XXA - HEAT EXHAUSTION, UNSPECIFIED, INITIAL ENCOUNTER (4) Diabetes mellitus Current Visit: No Status: Chronic Qualifiers: Diabetes mellitus type: type 2 Diabetes mellitus snf insulin use: without rn lpn lvn use Diabetes mellitus complication status: without complication Qualified Code(s): E11.9 - Type 2 diabetes mellitus without complications Assessment & Plan: accuchecks, sliding scale insulin to cover. I have put her on a regular diet in order to best mimic how she eats and manages her BS at home. Code(s): E11.9 - TYPE 2 DIABETES MELLITUS WITHOUT COMPLICATIONS (5) HTN (hypertension) Current Visit: No Status: Chronic Qualifiers: Hypertension type: essential hypertension Qualified Code(s): I10 - Essential (primary) hypertension Code(s): I10 - ESSENTIAL (PRIMARY) HYPERTENSION
[2018-01-20] MEDS ORDERED: NovoLOG Insulin SQ PRN (21:01)
[2018-01-21] MEDS: NEURONTIN 300 MG PO SCH ×3 (00:38→22:58)
[2018-01-21] MEDS: Pepcid 20 MG PO SCH ×3 (00:38→22:59)
[2018-01-21] MEDS: Sodium Chloride 0.9% W/ 20 mEq KCl/LITER 1,000 ML IV SCH ×3 (00:40→16:21)
[2018-01-21 04:24] LABS: BASOPHIL % 0.3 % (0.0-0.4); Basophil (Absolute #) 0.02 (0-0.4); Eosinophil % 2.4 % (0.00-5.0); Eosinophil (Absolute #) 0.16 (0-0.5); Granulocyte Absolute (ANC) 4.14 (1.4-6.9); Hematocrit 34.2 % (35-47); Hemoglobin 10.9 gm/dl (12.0-16.0); Lymphocyte (Absolute #) 2.07 (1.0-4.6); Lymphocytes % 30.5 % (24.0-44.0); Mean Cell Volume 70.2 fl (78-100); Mean Corpuscular Hgb Concent. 31.9 g/dl (32-36); Mean Platelet Volume 9.4 fl (6-9.5); Monocyte (Absolute #) 0.39 (0.0-1.3); Monocytes % 5.8 % (0.0-12.0); Platelet Count 245 K/mm3 (150-450); Red Blood Count 4.87 M/mm3 (4.1-5.4); Red Cell Distribution Width 20.1 % (11.5-14.0); White Blood Count 6.8 K/mm3 (4.0-10.5)
[2018-01-21 04:42] LABS: Mean Corpuscular Hemoglobin 22.3 pg (26-32)
[2018-01-21 05:03] LABS: ANION GAP 12.9 MEQ/L (5-15); Calcium 8.2 mg/dL (8.4-10.2); Creatinine 1 1.13 mg/dL (0.52-1.04); Potassium 3.6 mmol/L (3.5-5.1)
[2018-01-21] MEDS ORDERED: Sodium Chloride 0.9% 1000 ML 1,000 ML IV STA ×2 (07:55→14:31)
--- NOTE | 2018-01-21 08:03 | PCM.NOTE ---
Date and Time: 01/21/18 0758 Subjective Assessment: Pt is still very exhausted, has to rest in the wheelchair before going to the toilet, then has to rest on the toilet before going back to the bed. This is not a chronic issue. She is tolerating po but still with decreased appetite. - Review of Systems Constitutional: Weakness, Other (Tmax 99.7; all temps over 99 since admission except last was 98.7.), No Fever Objective Exam General Appearance: no apparent distress, alert, obese Neurologic Exam: oriented x 3, cooperative, other (in wheelchair) Skin Exam: normal color, warm, dry, No rash Neck Exam: normal inspection Respiratory Exam: normal breath sounds, lungs clear, No crackles/rales, No rhonchi, No wheezing Cardiovascular Exam: normal heart sounds, other (tachycardia), No murmur Back Exam: normal inspection, No rash OBJECTIVE DATA Vital Signs: Vital Signs - 24 hr Temp Pulse Resp BP Pulse Ox 01/21/18 07:40 98.8 F 105 H 18 122/73 96 01/21/18 07:36 94 L 01/21/18 06:00 98.7 F 105 H 18 118/65 95 01/21/18 04:00 99.2 F 106 H 18 129/79 96 01/21/18 02:00 99.6 F 118 H 18 141/70 96 01/21/18 00:58 18 91 L 01/20/18 23:18 99.6 F 121 H 20 123/68 95 01/20/18 22:00 99.2 F 126 H 20 111/79 94 L 01/20/18 21:00 99.2 F 126 H 20 111/79 94 L 01/20/18 19:00 124 H 20 145/102 95 01/20/18 17:23 124 H 22 132/84 95 01/20/18 15:18 99.7 F 140 H 24 121/92 99 Oxygen-Last 24 hours O2 Percentage 2 Liters = 28% O2 Percentage 2 Liters = 28% O2 Percentage 2 Liters = 28% O2 Percentage 2 Liters = 28% Pain Assessment - Last Documented Pain Scale Used FLACC Intake and Output: Intake & Output 01/18/18 01/19/18 01/20/18 01/21/18 11:59 11:59 11:59 11:59 Intake Total 120 Output Total 800 Balance -680 Weight 104.9 kg Lab Results: Accuchecks Date 01/20/18 Time 21:00 Accucheck Value: 111 Lab Results-Last 24 Hours 01/20/18 01/20/18 01/21/18 Range/Units 19:45 22:10 01:13 WBC (4.0-10.5) K/mm3 RBC (4.1-5.4) M/mm3 Hgb (12.0-16.0) gm/dl Hct (35-47) % MCV (78-100) fl MCH (26-32) pg MCHC (32-36) g/dl RDW (11.5-14.0) % Plt Count (150-450) K/mm3 MPV (6-9.5) fl Gran % (36.0-66.0) % Eos # (Auto) (0-0.5) Absolute Lymphs (auto) (1.0-4.6) Absolute Monos (auto) (0.0-1.3) Lymphocytes % (24.0-44.0) % Monocytes % (0.0-12.0) % Eosinophils % (0.00-5.0) % Basophils % (0.0-0.4) % Absolute Granulocytes (1.4-6.9) Basophils # (0-0.4) Sodium (137-145) mmol/L Potassium (3.5-5.1) mmol/L Chloride (98-107) mmol/L Carbon Dioxide (22-30) mmol/L Anion Gap (5-15) MEQ/L BUN (7-17) mg/dL Creatinine (0.52-1.04) mg/dL Estimated GFR ML/MIN Glucose (74-106) mg/dL Calcium (8.4-10.2) mg/dL Troponin I < 0.012 < 0.012 < 0.012 (0.000-0.034) ng/mL 01/21/18 01/21/18 01/21/18 Range/Units 04:25 04:25 04:25 WBC 6.8 (4.0-10.5) K/mm3 RBC 4.87 (4.1-5.4) M/mm3 Hgb 10.9 L (12.0-16.0) gm/dl Hct 34.2 L (35-47) % MCV 70.2 L (78-100) fl MCH 22.3 L (26-32) pg MCHC 31.9 L (32-36) g/dl RDW 20.1 H (11.5-14.0) % Plt Count 245 (150-450) K/mm3 MPV 9.4 (6-9.5) fl Gran % 61.0 (36.0-66.0) % Eos # (Auto) 0.16 (0-0.5) Absolute Lymphs (auto) 2.07 (1.0-4.6) Absolute Monos (auto) 0.39 (0.0-1.3) Lymphocytes % 30.5 (24.0-44.0) % Monocytes % 5.8 (0.0-12.0) % Eosinophils % 2.4 (0.00-5.0) % Basophils % 0.3 (0.0-0.4) % Absolute Granulocytes 4.14 (1.4-6.9) Basophils # 0.02 (0-0.4) Sodium 139 (137-145) mmol/L Potassium 3.6 (3.5-5.1) mmol/L Chloride 104 (98-107) mmol/L Carbon Dioxide 25 (22-30) mmol/L Anion Gap 12.9 (5-15) MEQ/L BUN 13 (7-17) mg/dL Creatinine 1.13 H (0.52-1.04) mg/dL Estimated GFR 52.9 ML/MIN Glucose 130 H (74-106) mg/dL Calcium 8.2 L (8.4-10.2) mg/dL Troponin I < 0.012 (0.000-0.034) ng/mL Assessment/Plan (1) Dehydration Current Visit: Yes Status: Acute Assessment & Plan: Much improved, but will still benefit from more IVF today. Will give a bolus of NS 1L this morning and another this afternoon. Code(s): E86.0 - DEHYDRATION (2) Acute renal injury Current Visit: Yes Status: Acute Assessment & Plan: Much improved; cr from 1.47 to 1.13 this morning. However her renal function was normal in Apr 2017 so I think this will improve further with more fluids. Code(s): N17.9 - ACUTE KIDNEY FAILURE, UNSPECIFIED (3) Heat exhaustion Current Visit: Yes Status: Acute Qualifiers: Encounter type: initial encounter Qualified Code(s): T67.5XXA - Heat exhaustion, unspecified, initial encounter Assessment & Plan: She is still quite fatigued. Code(s): T67.5XXA - HEAT EXHAUSTION, UNSPECIFIED, INITIAL ENCOUNTER (4) Diabetes mellitus Current Visit: No Status: Chronic Qualifiers: Diabetes mellitus type: type 2 Diabetes mellitus senior care insulin use: without senior care use Diabetes mellitus complication status: without complication Qualified Code(s): E11.9 - Type 2 diabetes mellitus without complications Code(s): E11.9 - TYPE 2 DIABETES MELLITUS WITHOUT COMPLICATIONS (5) HTN (hypertension) Current Visit: No Status: Chronic Qualifiers: Hypertension type: essential hypertension Qualified Code(s): I10 - Essential (primary) hypertension Assessment & Plan: stable Code(s): I10 - ESSENTIAL (PRIMARY) HYPERTENSION
[2018-01-21] MEDS: Toprol Xl 100 MG PO SCH (09:04)
[2018-01-21] MEDS: Protonix 40MG Tablet PO SCH (09:04)
[2018-01-21] MEDS: SYNTHROID 112 MCG PO SCH (09:05)
[2018-01-21] MEDS ORDERED: NON-FORMULARY ITEM (Omeprazole 20 Mg [Prilosec 20 Mg] 20 MG) PO SCH (10:00)
[2018-01-22] MEDS: Sodium Chloride 0.9% W/ 20 mEq KCl/LITER 1,000 ML IV SCH (04:19)
[2018-01-22 05:44] LABS: Hematocrit 33.2 % (35-47); Hemoglobin 10.3 gm/dl (12.0-16.0); Mean Corpuscular Hemoglobin 22.6 pg (26-32); Platelet Count 233 K/mm3 (150-450); Red Blood Count 4.55 M/mm3 (4.1-5.4); Red Cell Distribution Width 20.4 % (11.5-14.0); White Blood Count 6.3 K/mm3 (4.0-10.5)
[2018-01-22 06:06] LABS: ALBUMIN 3.1 g/dL (3.5-5.0); ANION GAP 11.9 MEQ/L (5-15); BILIRUBIN,TOTAL 0.5 mg/dL (0.2-1.3); Calcium 7.5 mg/dL (8.4-10.2); Creatinine 1 1.03 mg/dL (0.52-1.04); Potassium 4.1 mmol/L (3.5-5.1); Total Protein 6.7 g/dL (6.3-8.2)
[2018-01-22 07:32] VITALS: BP 149/78; PULSE 88; O2SAT 93
--- NOTE | 2018-01-22 09:23 | PCM.DS ---
Discharge Summary Date of Admission: 01/20/18 19:10 Admitting Physician: ZAN JIN Primary Care Provider: ZAN JIN Allergies Allergies sulfamethoxazole [From Bactrim] Allergy (Verified 01/20/18 15:48) Sore Throat roof of mouth raw Hospital Summary - Hospital Course Hospital Course: Pt was admitted with heat exhaustion and dehydration with HR of 140 and acute renal injury. Over 2 days with fluid her kidneys have improved back to baseline and her temps are normal. She is still feeling weak. She would like to go back home. Her a/c is broken so discharge planning is trying to arrange something so she is not in the same environment upon discharge. - Vitals & Intake/Output Vital Signs: Vital Signs Temperature 99.7 F 01/22/18 07:31 Pulse Rate 88 01/22/18 07:31 Respiratory Rate 18 01/22/18 07:31 Blood Pressure 149/78 01/22/18 07:31 O2 Sat by Pulse Oximetry 93 L 01/22/18 07:31 Oxygen-Last Documented O2 Percentage 2 Liters = 28% Intake & Output: Intake & Output 01/19/18 01/20/18 01/21/18 01/22/18 11:59 11:59 11:59 11:59 Intake Total 600 6949 Output Total 800 3075 Balance -200 3874 Weight 104.9 kg - Lab Result Diagrams: 01/22/18 05:05 01/22/18 05:05 Lab Results-Last 24 Hrs: Accuchecks Date 01/21/18 Date 01/21/18 Date 01/21/18 Time 21:30 Time 16:30 Time 11:30 Accucheck Value: 105 Accucheck Value: 114 Accucheck Value: 120 Lab Results-Last 24 Hours 01/22/18 01/22/18 Range/Units 05:05 05:05 WBC 6.3 (4.0-10.5) K/mm3 RBC 4.55 (4.1-5.4) M/mm3 Hgb 10.3 L (12.0-16.0) gm/dl Hct 33.2 L (35-47) % MCV 73.0 L (78-100) fl MCH 22.6 L (26-32) pg MCHC 31.0 L (32-36) g/dl RDW 20.4 H (11.5-14.0) % Plt Count 233 (150-450) K/mm3 MPV 10.0 H (6-9.5) fl Sodium 141 (137-145) mmol/L Potassium 4.1 (3.5-5.1) mmol/L Chloride 110 H (98-107) mmol/L Carbon Dioxide 24 (22-30) mmol/L Anion Gap 11.9 (5-15) MEQ/L BUN 13 (7-17) mg/dL Creatinine 1.03 (0.52-1.04) mg/dL Estimated GFR 58.9 ML/MIN Glucose 123 H (74-106) mg/dL Calcium 7.5 L (8.4-10.2) mg/dL Total Bilirubin 0.50 (0.2-1.3) mg/dL AST 31 (14-36) U/L ALT 20 (0-35) U/L Alkaline Phosphatase 61 (38-126) U/L Serum Total Protein 6.7 (6.3-8.2) g/dL Albumin 3.1 L (3.5-5.0) g/dL Micro Results-Entire Visit: Accuchecks Date 01/21/18 Date 01/21/18 Date 01/21/18 Time 21:30 Time 16:30 Time 11:30 Accucheck Value: 105 Accucheck Value: 114 Accucheck Value: 120 - Procedures and Test Procedures and Tests throughout Hospitalization: Therapy Orders & Screens 01/21/18 00:57 Oxygen NASAL CANNULA 2 lpm Comment: Diagnosis: dehydration Discharge Exam General Appearance: no apparent distress, obese Neurologic Exam: alert, oriented x 3, cooperative Skin Exam: normal color, warm, dry, No rash Respiratory Exam: normal breath sounds, lungs clear, wheezing (faint scattered) , No crackles/rales, No rhonchi Cardiovascular Exam: regular rate/rhythm, normal heart sounds, No murmur Extremity Exam: No pedal edema, No swelling Final Diagnosis/Problem List - Final Discharge Diagnosis/Problem (1) Dehydration Current Visit: Yes Status: Resolved Onset Date: ~01/21/18 Assessment & Plan: resolved. (2) Acute renal injury Current Visit: Yes Status: Resolved Onset Date: ~01/21/18 (3) Heat exhaustion Current Visit: Yes Status: Resolved Onset Date: ~01/21/18 (4) Diabetes mellitus Current Visit: No Status: Chronic (5) HTN (hypertension) Current Visit: No Status: Chronic (6) Wheezing Current Visit: Yes Status: Acute Assessment & Plan: mild; home on inhaler - Discharge Disposition: Home, Self-Care Condition: Stable Prescriptions: New Albuterol 17 gm IH Q4H PRN #1 aerosol PRN Reason: cough or wheeze Continue Famotidine 20 mg [Pepcid 20 MG] 20 mg PO BID Metoprolol Succinate 100 mg [Toprol Xl 100 MG] 100 mg PO DAILY Omeprazole 20 MG [Prilosec 20 mg] 20 mg PO DAILY Metformin HCl 500 mg [Glucophage 500 MG] 500 mg PO BID Gabapentin 600 mg PO BID Levothyroxine Sodium 112 Mcg [Synthroid 112 Mcg] 112 mcg PO DAILY Follow up with: ZAN JIN [Primary Care Provider] - 01/30/18 10:15 am
[2018-01-22] MEDS ORDERED: PROVENTIL 2.5 MG/3 ML NEB IH PRN (09:24)
[2018-01-22] MEDS: Pepcid 20 MG PO SCH (09:43)
[2018-01-22] MEDS: Protonix 40MG Tablet PO SCH (09:43)
[2018-01-22] MEDS: NEURONTIN 300 MG PO SCH (09:43)
[2018-01-22] MEDS: Toprol Xl 100 MG PO SCH (09:43)
[2018-01-22] MEDS: SYNTHROID 112 MCG PO SCH (09:50)
== END 2018-01-22 11:05 | disposition home or self-care (01) ==
LOC: ED 15:08 → MED SURG 19:10
PROVIDERS: ADMIT Family Medicine; ATTEND Family Medicine
DX: E86.0 Dehydration (principal); N17.9 Acute kidney failure, unspecified; T67.5XXA Heat exhaustion, unspecified, initial encounter; E11.9 Type 2 diabetes mellitus without complications; Z79.4 Long term (current) use of insulin; I10 Essential (primary) hypertension; R06.2 Wheezing; E03.9 Hypothyroidism, unspecified; J44.9 Chronic obstructive pulmonary disease, unspecified; F32.9 Major depressive disorder, single episode, unspecified; Z79.899 Other long term (current) drug therapy
CPT/HCPCS: 36000; 36415; 80048; 80053; 83605; 84443; 84484; 85025; 85027; 93005; 93268; 94760; 96360; 99285; A9270-GY; G0378

== ENCOUNTER 2019-02-14 21:10 | Emergency (ER) | payer OTHER ==
[2019-02-14] MEDS ORDERED: DUONEB 0.5-3 MG/3 ml Neb IH ONE ×2 (21:30→21:57)
[2019-02-14] MEDS ORDERED: Sodium Chloride 0.9% 1000 ML 1,000 ML IV SCH (21:30)
[2019-02-14] MEDS ORDERED: ROCEPHIN 1 Gm-D5w 50 ml Bag** 1 G/50 ML IVPB IV STA (21:30)
--- NOTE | 2019-02-14 21:39 | ERPHSYRPT ---
- History of Present Illness Time Seen by Provider: 02/14/19 21:30 Source: patient Exam Limitations: clinical condition Patient Subjective Stated Complaint: Pt states she "accidently inhaled my medication capsule instead of swallowing it" yesterday morning. Pt states since then she has been wheezing and coughing. denies fever. Triage Nursing Assessment: [place]/warm/dry, resp easy, a&ox4, pt presented in wheelchair but ambulated across room to bed per self without difficulty. occassional cough, no distress noted. Physician History: PATIENT WITH A HISTORY OF HYPERTENSION, DEPRESSION, HYPOTHYROIDISM, 36 PACK YEAR SMOKER, YESTERDAY MORNING AT 1AM CHOKED ON A CAPSULE OF OMEPRAZOLE AND HAS BEEN COUGHING AND WHEEZING SINCE INCIDENT. HAS A PRODUCTIVE COUGH. DENIES FEVER , CHILLS, CHEST PAIN. Timing/Duration: yesterday Activities at Onset: other (ONSET AFTER CHOKING ON CAPSULE) Severity of Dyspnea-Max: mild Severity of Dyspnea-Current: mild Modifying Factors: Improves With: coughing Associated Symptoms: cough, wheezing International travel in last 2 weeks: No Allergies/Adverse Reactions: sulfamethoxazole [From [employer]] Allergy (Verified 01/20/18 15:48) Sore Throat roof of mouth raw Home Medications: Famotidine 20 mg [Pepcid 20 MG] 20 mg PO BID 01/20/18 [History] Gabapentin 900 mg PO BID 01/20/18 [History] Levothyroxine Sodium 112 Mcg [Synthroid 112 Mcg] 112 mcg PO DAILY 01/20/18 [History] Metformin HCl 500 mg [Glucophage 500 MG] 500 mg PO BID 01/20/18 [History] Omeprazole 20 MG [Prilosec 20 mg] 20 mg PO DAILY 01/20/18 [History] Cyclobenzaprine HCl 10 mg [Cyclobenzaprine 10 MG] 10 mg PO TID PRN [History] Meloxicam 15 mg PO BID PRN 02/14/19 [History] Metoprolol Tartrate 50 mg [Lopressor 50 MG] 50 mg PO BID 02/14/19 [History ] Rosuvastatin Calcium 20 mg PO DAILY 02/14/19 [History] Tramadol HCl 50 mg [Ultram 50 mg] 50 mg PO BID PRN 02/14/19 [History] Hx Tetanus, Diphtheria Vaccination/Date Given: Yes Hx Influenza Vaccination/Date Given: Yes Hx Pneumococcal Vaccination/Date Given: Yes Immunizations Up to Date: Yes - Review of Systems Constitutional: No Fever, No Chills Eyes: No Symptoms Ears, Nose, & Throat: No Symptoms Respiratory: Cough, No Dyspnea Cardiac: No Symptoms, No Chest Pain, No Edema, No Syncope Abdominal/Gastrointestinal: No Symptoms, No Abdominal Pain, No Nausea, No Vomiting, No Diarrhea Genitourinary Symptoms: No Symptoms, No Dysuria Musculoskeletal: No Symptoms, No Back Pain, No Neck Pain Skin: No Rash Neurological: No Dizziness, No Focal Weakness, No Sensory Changes Psychological: No Symptoms Endocrine: No Symptoms All Other Systems: Reviewed and Negative - Past Medical History Pertinent Past Medical History: Yes Neurological History: Peripheral Neuropathy ENT History: Cataracts Cardiac History: High Cholesterol, Hypertension Respiratory History: No Pertinent History Endocrine Medical History: Diabetes Type II, Hypothyroidism Musculoskeletal History: Arthritis, Osteoporosis GI Medical History: Irritable Bowel History: Other Psycho-Social History: Depression Female Reproductive Disorders: Other Other Medical History: Lumbar Fusion. Diabetes type 2 - Past Surgical History Past Surgical History: Yes Neuro Surgical History: No Pertinent History Cardiac: No Pertinent History Respiratory: No Pertinent History Gastrointestinal: Cholecystectomy Genitourinary: No Pertinent History Musculoskeletal: Orthopedic Surgery Female Surgical History: Hysterectomy, Tubal Ligation Other Surgical History: THROAT CYST - LUMBAR - lul CARPEL TUNNEL - CATARACT REMOVAL - bilateral, cervical Ca - Social History Smoking Status: Former smoker Exposure to second hand smoke: No Drug Use: none Patient Lives Alone: Yes Significant Family History: no pertinent family hx - Female History Hx Now: No - Nursing Vital Signs Nursing Vital Signs: Initial Vital Signs Temperature 98.5 F 02/14/19 21:18 Pulse Rate 82 02/14/19 21:18 Respiratory Rate 18 02/14/19 21:18 Blood Pressure 129/78 02/14/19 21:18 O2 Sat by Pulse Oximetry 98 02/14/19 21:18 Pain Scale Pain Intensity 0 - Physical Exam General Appearance: no apparent distress, alert Eye Exam: PERRL/EOMI Ears, Nose, Throat Exam: hearing grossly normal Neck Exam: normal inspection, supple Respiratory Exam: other (BREATH SOUNDS CLEAR EXCEPT FOR TERMINAL EXPIRATORY WHEEZES, NO RHONCHI, NO STRIDOR, NO LABORED BREATHING) Cardiovascular/Chest Exam: normal heart sounds, regular rate/rhythm Abdominal/Gastrointestinal Exam: soft, normal bowel sounds, No tenderness, No distention, No mass Extremity Exam: non-tender, normal range of motion, normal inspection, no calf tenderness, no pedal edema Peripheral Pulses Exam: carotid (R): 2+, carotid (L): 2+, femoral (R): 2+, femoral (L): 2+, dorsalis-pedis (R): 2+, dorsalis-pedis (L): 2+ Neurologic Exam: alert, oriented x 3, cooperative, protection mgr II-XII nml as tested, sensation nml, No motor deficits Skin Exam: normal color, warm, No dry SpO2 Interpretation: normal SpO2: 98 - CT Exams Chest CT Interpretation: Tele-radiologist Report (NO ACUTE FINDINGS. NO FOREIGN BODY IDENTIFIED) Ordered Tests: Active Orders 24 hr Category Date Time Status Steward/Stewardess Room STAT Care 02/14/19 21:32 Active IV Insertion STAT Care 02/14/19 21:30 Active CHEST WITH CONTRAST [CT] Stat Exams 02/14/19 21:31 Taken BLOOD CULTURE Stat Lab 02/14/19 21:49 Received BMP Stat Lab 02/14/19 21:49 Completed CBC W DIFF Stat Lab 02/14/19 21:49 Completed MAGNESIUM Stat Lab 02/14/19 21:49 Completed Peak Expiratory Flow Rate ONCE RT 02/14/19 21:30 Completed Respiratory Therapy Assessment DAILY RT 02/14/19 22:03 Completed Medication Summary Generic Name Dose Route Start Last Admin Trade Name Freq PRN Reason Stop Dose Admin Sodium Chloride 1,000 mls @ 100 mls/hr 02/14/19 21:30 02/14/19 21:53 Sodium Chloride 0.9% 1000 Ml IV 03/16/19 21:29 100 mls/hr .Q10H MADDY Administration Discontinued Medications Generic Name Dose Route Start Last Admin Trade Name Freq PRN Reason Stop Dose Admin Albuterol/Ipratropium 3 ml 02/14/19 21:30 02/14/19 22:00 Duoneb 0.5-3 Mg/3 Ml Neb IH 02/14/19 21:31 3 ml STAT ONE Administration Albuterol/Ipratropium Confirm 02/14/19 21:57 Duoneb 0.5-3 Mg/3 Ml Neb Administered 02/14/19 21:58 Dose 3 ml IH .STK-MED ONE Albuterol/Ipratropium Confirm 02/15/19 00:13 Duoneb 0.5-3 Mg/3 Ml Neb Administered 02/15/19 00:14 Dose 3 ml IH .STK-MED ONE Ceftriaxone Sodium/Dextrose 1 g in 50 mls @ 100 mls/hr 02/14/19 21:30 22:28 Rocephin 1 Gm-D5w 50 Ml Bag IV 02/14/19 21:59 Infused STAT STA Infusion Ceftriaxone Sodium/Dextrose Confirm 02/14/19 21:45 Rocephin 1 Gm-D5w 50 Ml Bag Administered 02/14/19 21:46 Dose 1 g in 50 mls @ ud IV .STK-MED ONE Lab/Rad Data: Laboratory Result Diagrams 02/14/19 21:49 02/14/19 21:49 Laboratory Results 02/14/19 02/14/19 Range/Units 21:49 21:49 WBC 6.0 (4.0-10.5) K/mm3 RBC 5.54 H (4.1-5.4) M/mm3 Hgb 11.9 L (12.0-16.0) gm/dl Hct 39.2 (35-47) % MCV 70.8 L (78-100) fl MCH 21.4 L (26-32) pg MCHC 30.4 L (32-36) g/dl RDW 21.3 H (11.5-14.0) % Plt Count 328 (150-450) K/mm3 MPV 9.5 (6-9.5) fl Gran % 55.7 (36.0-66.0) % Eos # (Auto) 0.37 (0-0.5) Absolute Lymphs (auto) 1.90 (1.0-4.6) Absolute Monos (auto) 0.37 (0.0-1.3) Lymphocytes % 31.6 (24.0-44.0) % Monocytes % 6.1 (0.0-12.0) % Eosinophils % 6.1 H (0.00-5.0) % Basophils % 0.5 (0.0-0.4) % Absolute Granulocytes 3.35 (1.4-6.9) Basophils # 0.03 (0-0.4) Sodium 141 (137-145) mmol/L Potassium 4.3 (3.5-5.1) mmol/L Chloride 104 (98-107) mmol/L Carbon Dioxide 29 (22-30) mmol/L Anion Gap 12.1 (5-15) MEQ/L BUN 13 (7-17) mg/dL Creatinine 0.83 (0.52-1.04) mg/dL Estimated GFR > 60.0 ML/MIN Glucose 111 H (74-106) mg/dL Calcium 9.7 (8.4-10.2) mg/dL Magnesium 1.6 (1.6-2.3) mg/dL Slides for Path Review YES - Progress Progress Note: 02/14/19 21:41 ADMINISTERED DUONEB AEROSOL, SOLUMEDROL 125MG, AND ROCEPHIN 1GM IVPB Discussed with Dr.: Other (DISCUSSED WITH DR SCHAEFFER AT 2355 ACCEPTS TRANSFER VIA [facility]) - Departure Departure Disposition: Transfer Clinical Impression: UPPER AIRWAY FOREIGN BODY Condition: Stable Critical Care Time: No Referrals: ZAN JIN [Primary Care Provider] -
[2019-02-14] MEDS ORDERED: Sodium Chloride 0.9% 1000 ML 1,000 ML ONE (21:45)
[2019-02-14] MEDS ORDERED: ROCEPHIN 1 Gm-D5w 50 ml Bag** 1 G/50 ML IVPB IV ONE (21:45)
[2019-02-14 21:53] LABS: BASOPHIL % 0.5 % (0.0-0.4); Basophil (Absolute #) 0.03 (0-0.4); Eosinophil % 6.1 % (0.00-5.0); Eosinophil (Absolute #) 0.37 (0-0.5); Granulocyte Absolute (ANC) 3.35 (1.4-6.9); Granulocytes % 55.7 % (36.0-66.0); Hematocrit 39.2 % (35-47); Hemoglobin 11.9 gm/dl (12.0-16.0); Lymphocytes % 31.6 % (24.0-44.0); Mean Cell Volume 70.8 fl (78-100); Mean Corpuscular Hgb Concent. 30.4 g/dl (32-36); Mean Platelet Volume 9.5 fl (6-9.5); Monocyte (Absolute #) 0.37 (0.0-1.3); Monocytes % 6.1 % (0.0-12.0); Platelet Count 328 K/mm3 (150-450); Red Blood Count 5.54 M/mm3 (4.1-5.4); Red Cell Distribution Width 21.3 % (11.5-14.0)
[2019-02-14 21:57] LABS: Mean Corpuscular Hemoglobin 21.4 pg (26-32)
[2019-02-14 22:04] LABS: ANION GAP 12.1 MEQ/L (5-15); BLOOD UREA NITROGEN 13 mg/dL (7-17); CHLORIDE 104 mmol/L (98-107); Calcium 9.7 mg/dL (8.4-10.2); Carbon Dioxide 29 mmol/L (22-30); Creatinine 1 0.83 mg/dL (0.52-1.04); Glucose 111 mg/dL (74-106); MAGNESIUM 1.6 mg/dL (1.6-2.3); Potassium 4.3 mmol/L (3.5-5.1); SODIUM 141 mmol/L (137-145)
[2019-02-15] MEDS ORDERED: DUONEB 0.5-3 MG/3 ml Neb IH ONE ×2 (00:13→00:16)
[2019-02-15 00:14] VITALS: BP 126/76
[2019-02-15 00:19] VITALS: O2SAT 98
[2019-02-15 00:20] VITALS: PULSE 79
--- NOTE | 2019-02-15 08:11 | XRAY ---
Indication: Coughing and wheezing. Aspiration of capsule. Multiple contiguous axial images obtained through the chest using 80 cc Isovue 370 contrast. Comparison: November 01, 2012. No radiopaque foreign body in the tracheobronchial tree or visualized GI tract. Heart is not enlarged. Aorta is normal in course and caliber. No pathologic mediastinal/hilar lymphadenopathy. Lungs demonstrates mild scattered atelectasis/scarring. No suspicious pulmonary mass, infiltrate, or effusion. Osseous structures intact. Limited upper abdomen demonstrates fatty liver, cholecystectomy, and 14 cm splenomegaly. Impression: 1. Negative radiopaque foreign body. 2. Scattered atelectasis/scarring. No acute cardiopulmonary abnormalities. 3. Incidental fatty liver and splenomegaly. Comment: Preliminary interpretation was made by [facility]. No critical discrepancy. CTDI 17.76
== END 2019-02-15 00:35 | disposition short-term general hospital (02) ==
LOC: ED 21:10
DX: T17.998A Other foreign object in respiratory tract, part unspecified causing other injury, initial encounter (principal); I10 Essential (primary) hypertension; R05 Cough; R06.2 Wheezing
CPT/HCPCS: 36000; 36415; 71260; 80048; 83735; 85025; 87040; 93041; 94150; 94640; 96360; 96365; 99285; J0696; A9270-GY

== ENCOUNTER 2019-12-25 05:54 | Day surgery (SDC) | payer OTHER ==
[2019-12-25] MEDS ORDERED: Lactated Ringers 1,000 ML IV SCH (06:00)
[2019-12-25] MEDS ORDERED: Lactated Ringers 1,000 ML IV ONE (06:41)
[2019-12-25] MEDS ORDERED: DIPRIVAN 200 MG/20 ML IV ONE (07:31)
[2019-12-25 09:53] VITALS: O2SAT 96
--- NOTE | 2019-12-25 10:08 | OP ---
SURGERY DATE/TIME: 12/25/2019 0735 PREOPERATIVE DIAGNOSIS: Anemia. POSTOPERATIVE DIAGNOSES: 1) Moderate gastritis. 2) Small hiatal hernia. 3) Normal colon. PROCEDURES: 1) Esophagogastroduodenoscopy with cold forceps biopsy. 2) Colonoscopy. SURGEON: Dr. Del Rosario. ANESTHESIA: Medications were given by the anesthesia department. HISTORY: The patient is a 59 year old white female who reports she has problems with anemia. She is on iron but it is also noted that she is taking Meloxicam occasionally. The patient denies taking aspirin, ibuprofen or Aleve. The patient was felt to need to have endoscopic evaluation and was appraised of the risks of the procedure including the risk of perforation, phlebitis, untoward reaction to medication, bleeding and missed lesions. The patient verbalized her understanding and desired to have the procedure performed. DESCRIPTION OF PROCEDURE: The patient was given the medications by the anesthesia department. She had continuous pulse oximetry, ECG monitoring, intermittent blood pressure monitoring and tidal CO2 monitoring during the examination. She was placed in the left lateral decubitus position. A bite block was placed. The flexible Olympus gastroscope was used to intubate the oropharynx. A view of the larynx was obtained and was normal. The scope was easily introduced in the esophagus which was normal to the gastroesophageal junction where there appeared to be a small hiatal hernia. The stomach was entered where normal gastric rugal folds were seen. A gastric martell was suctioned dry and the stomach was re-insufflated. The scope was passed along the greater curvature of the stomach to the antrum. There appeared to be moderate erythema but no erosions or ulcerations. The pylorus was intubated. The duodenum inspected and found to be normal. The scope is withdrawn from the stomach. Again a retroflex view was obtained of the lesser curvature, fundus and cardia regions of the stomach and these appeared to be normal. The scope was then redirected towards the gastric antrum and biopsies were obtained to rule out the presence of Helicobacter pylori-type organisms. The scope was then removed from the patient. Next, a digital rectal exam was performed revealed external hemorrhoids but no other masses. The flexible Olympus pediatric colonoscope was used to intubate the rectum. A view of the colon was developed sequentially to the cecum. Upon insertion and withdrawal was noted normal looking colon mucosa. No abnormalities were noted. The scope was removed from the patient who tolerated the procedure well and sent back to OP recovery in good condition. The prep was noted to be good.
[2019-12-25 10:19] VITALS: BP 117/80; PULSE 64
== END 2019-12-25 10:05 | disposition home or self-care (01) ==
LOC: SDC 05:54
PROVIDERS: ATTEND Family Medicine
DX: K29.50 Unspecified chronic gastritis without bleeding (principal); D64.9 Anemia, unspecified; K44.9 Diaphragmatic hernia without obstruction or gangrene; K64.4 Residual hemorrhoidal skin tags; E11.9 Type 2 diabetes mellitus without complications; I10 Essential (primary) hypertension; Z79.899 Other long term (current) drug therapy
CPT/HCPCS: 82962; 88305; J2704

== ENCOUNTER 2021-07-21 19:45 | Emergency (ER) | payer OTHER ==
--- NOTE | 2021-07-21 19:53 | ERPHSYRPT ---
- History of Present Illness Time Seen by Provider: 07/21/21 19:53 Historian: patient Exam Limitations: no limitations Physician History: This is a morbidly obese white female patient of Dr. Jorge Maddox who was brought into the emergency department by ambulance because of 4 days of 5-10 episodes of diarrheal stools and associated weakness. Patient denies vomiting. She denies chest pain. She denies shortness of breath. Patient states that she has had in the past, C. difficile colitis. Patient states she thinks that she had eaten some "bad chicken the day prior to the onset of her symptoms. Patient has a history of hypertension, anxiety, hypothyroidism, diabetes, and gastroesophageal reflux disease. Patient self caths her urinary bladder Timing/Duration: day(s) (4) Quality: cramping Abdominal Pain Onset Location: generalized abdomen Pain Radiation: no radiation Severity of Pain-Max: mild Severity of Pain-Current: mild Modifying Factors: Improves With: other (Diarrhea) Associated Symptoms: diarrhea, loss of appetite, weakness, No vomiting Previous symptoms: same symptoms as today Allergies/Adverse Reactions: Sulfa (Sulfonamide Antibiotics) Allergy (Verified 07/21/21 19:48) Sore Throat sulfamethoxazole [From Bactrim] Allergy (Verified 07/21/21 19:48) Sore Throat roof of mouth raw Home Medications: Levothyroxine Sodium 112 Mcg [Synthroid 112 Mcg] 100 mcg PO DAILY 01/20/18 [History] Metformin HCl 500 mg [Glucophage 500 MG] 500 mg PO BID 01/20/18 [History] Metoprolol Tartrate 50 mg [Lopressor 50 MG] 50 mg PO BID 02/14/19 [History] Rosuvastatin Calcium 20 mg PO DAILY 02/14/19 [History] Pregabalin 50 mg [Lyrica 50MG] 100 mg PO TID 12/22/19 [History] lisinopriL [Zestril] 5 mg PO DAILY 12/22/19 [History] Levothyroxine Sodium 100 mcg PO DAILY 07/21/21 [History] PANTOPRAZOLE 40 mg Tablet [Protonix 40MG Tablet] 40 mg PO DAILY 07/21/21 [History] Hx Tetanus, Diphtheria Vaccination/Date Given: Yes Hx Influenza Vaccination/Date Given: Yes Hx Pneumococcal Vaccination/Date Given: Yes Travel Risk - International Travel Have you traveled outside of the country in past 3 weeks: No - Coronavirus Screening Are you exhibiting any of the following symptoms?: No Close contact with a COVID-19 positive Pt in past 14-21 Days: No - Review of Systems Constitutional: Weakness, No Fever, No Chills Eyes: No Symptoms Ears, Nose, & Throat: No Symptoms Respiratory: No Symptoms Cardiac: No Symptoms Abdominal/Gastrointestinal: Diarrhea, No Abdominal Pain, No Nausea, No Vomiting, No Constipation Genitourinary Symptoms: No Symptoms Musculoskeletal: No Symptoms Skin: No Symptoms Neurological: No Symptoms Psychological: No Symptoms Endocrine: No Symptoms Hematologic/Lymphatic: No Symptoms Immunological/Allergic: No Symptoms All Other Systems: Reviewed and Negative - Past Medical History Pertinent Past Medical History: Yes Neurological History: Peripheral Neuropathy ENT History: Cataracts Cardiac History: High Cholesterol, Hypertension, Other Respiratory History: No Pertinent History Endocrine Medical History: Diabetes Type II, Hypothyroidism Musculoskeletal History: Degenerative Disk Disease, Osteoarthritis GI Medical History: Irritable Bowel History: Other Psycho-Social History: Depression Female Reproductive Disorders: Other Other Medical History: back surgery 2002 L4-5 fusion, numbness in the back of B LE due to neuropathy, notes muscle spasms. weak valve and pvc's. pt uses straight cath to empty bladder - Past Surgical History Past Surgical History: Yes Neuro Surgical History: No Pertinent History Cardiac: No Pertinent History Respiratory: No Pertinent History Gastrointestinal: Cholecystectomy, Hemorrhoidectomy Genitourinary: No Pertinent History Musculoskeletal: Orthopedic Surgery Female Surgical History: Hysterectomy, Tubal Ligation Other Surgical History: THROAT CYST - LUMBAR - lul CARPEL TUNNEL - CATARACT REMOVAL - bilateral, cervical Ca - Social History Smoking Status: Former smoker Exposure to second hand smoke: No Drug Use: none Patient Lives Alone: Yes Significant Family History: no pertinent family hx - Nursing Vital Signs Nursing Vital Signs: Initial Vital Signs Temperature 97 F 07/21/21 19:46 Pulse Rate 75 07/21/21 19:46 Respiratory Rate 16 07/21/21 19:46 Blood Pressure 144/65 07/21/21 19:46 O2 Sat by Pulse Oximetry 98 07/21/21 19:46 Pain Scale Pain Intensity 0 - Physical Exam General Appearance: no apparent distress, alert, anxiety, obese Eye Exam: PERRL/EOMI, eyes nml inspection Ears, Nose, Throat Exam: normal ENT inspection, moist mucous membranes Neck Exam: normal inspection, non-tender, supple, full range of motion Respiratory Exam: normal breath sounds, lungs clear, airway intact, No chest tenderness, No respiratory distress Cardiovascular Exam: regular rate/rhythm, normal heart sounds, normal peripheral pulses Gastrointestinal/Abdomen Exam: soft, normal bowel sounds, No tenderness Pelvic Exam: not done Rectal Exam: not done Back Exam: normal inspection, normal range of motion, No CVA tenderness, No vertebral tenderness Extremity Exam: normal inspection, normal range of motion, pelvis stable Neurologic Exam: alert, oriented x 3, cooperative, sat instructor II-XII nml as tested, normal mood/affect, nml cerebellar function, nml station & gait, sensation nml Skin Exam: normal color, warm, dry Lymphatic Exam: No adenopathy SpO2 Interpretation: normal O2 Delivery: Room Air - Course Nursing assessment & vital signs reviewed: Yes Ordered Tests: Active Orders 24 hr Category Date Time Status IV Insertion STAT Care 07/21/21 21:01 Active ABDOMEN AND PELVIS W/0 CONTRAS [CT] Stat Exams 07/21/21 21:01 Taken AMYLASE Stat Lab 07/21/21 21:15 Completed BLOOD CULTURE Stat Lab 07/21/21 21:35 Received CBC W DIFF Stat Lab 07/21/21 21:15 Completed CMP Stat Lab 07/21/21 21:15 Completed CULTURE,URINE Stat Lab 07/21/21 21:01 Received LIPASE Stat Lab 07/21/21 21:15 Completed Lactic Acid Stat Lab 07/21/21 21:51 Completed UA W/RFX UR CULTURE Stat Lab 07/21/21 21:01 Completed Medication Summary Discontinued Medications Generic Name Dose Route Start Last Admin Trade Name Aayush PRN Reason Stop Dose Admin Sodium Chloride 1,000 mls @ 999 mls/hr 07/21/21 21:01 07/22/21 00:09 Sodium Chloride 0.9% 1000 Ml IV 07/21/21 22:01 Infused .Q1H1M STA Infusion Sodium Chloride Confirm 07/21/21 21:05 Sodium Chloride 0.9% 1000 Ml Administered 07/21/21 21:06 Dose 1,000 mls @ ud .ROUTE .STK-MED ONE Sodium Chloride 1,000 mls @ 999 mls/hr 07/21/21 23:56 07/21/21 23:59 Sodium Chloride 0.9% 1000 Ml IV 07/22/21 00:56 999 mls/hr .Q1H1M STA Administration Sodium Chloride Confirm 07/21/21 23:59 Sodium Chloride 0.9% 1000 Ml Administered 07/22/21 00:00 Dose 1,000 mls @ ud .ROUTE .STK-MED ONE Ceftriaxone Sodium/Dextrose 1 g in 50 mls @ 100 mls/hr 07/22/21 01:09 07/22/21 01:16 Rocephin 1 Gm-D5w 50 Ml Bag IV 07/22/21 01:38 100 mls/hr STAT STA 100 mls/hr Administration Ceftriaxone Sodium/Dextrose Confirm 07/22/21 01:15 Rocephin 1 Gm-D5w 50 Ml Bag Administered 07/22/21 01:16 Dose 1 g in 50 mls @ ud IV .STK-MED ONE Metronidazole 500 mg 07/22/21 00:35 07/22/21 00:38 Metronidazole 500 Mg Tablet PO 07/22/21 00:36 500 mg STAT ONE Administration Metronidazole Confirm 07/22/21 00:38 Metronidazole 500 Mg Tablet Administered 07/22/21 00:39 Dose 500 mg .ROUTE .STK-MED ONE Lab/Rad Data: Laboratory Result Diagrams 07/21/21 21:15 07/21/21 21:15 Laboratory Results 07/21/21 07/21/21 07/21/21 Range/Units 21:51 21:15 21:15 WBC 7.7 (4.0-10.5) K/mm3 RBC 5.44 H (4.1-5.4) M/mm3 Hgb 11.9 L (12.0-16.0) gm/dl Hct 41.0 (35-47) % MCV 75.4 L (78-100) fl MCH 21.9 L (26-32) pg MCHC 29.0 L (32-36) g/dl RDW 21.7 H (11.5-14.0) % Plt Count 270 (150-450) K/mm3 MPV 10.1 (7.5-11.0) fl Gran % 68.5 H (36.0-66.0) % Eos # (Auto) 0.17 (0-0.5) Absolute Lymphs (auto) 1.72 (1.0-4.6) Absolute Monos (auto) 0.50 (0.0-1.3) Lymphocytes % 22.4 L (24.0-44.0) % Monocytes % 6.5 (0.0-12.0) % Eosinophils % 2.2 (0.00-5.0) % Basophils % 0.4 (0.0-0.4) % Absolute Granulocytes 5.25 (1.4-6.9) Basophils # 0.03 (0-0.4) Sodium 134 L (137-145) mmol/L Potassium 3.8 (3.5-5.1) mmol/L Chloride 99 (98-107) mmol/L Carbon Dioxide 29 (22-30) mmol/L Anion Gap 9.7 (5-15) MEQ/L BUN 8 (7-17) mg/dL Creatinine 0.81 (0.52-1.04) mg/dL Estimated GFR > 60.0 ML/MIN Glucose 97 (74-106) mg/dL Lactic Acid 1.9 (0.4-2.0) Calcium 8.0 L (8.4-10.2) mg/dL Total Bilirubin 0.90 (0.2-1.3) mg/dL AST 35 (14-36) U/L ALT 40 H (0-35) U/L Alkaline Phosphatase 58 (38-126) U/L Serum Total Protein 6.6 (6.3-8.2) g/dL Albumin 3.3 L (3.5-5.0) g/dL Amylase 37 (30-110) U/L Lipase 45 (23-300) U/L Urine Color (YELLOW) Urine Appearance (CLEAR) Urine pH (5-6) Ur Specific [place] (1.005-1.025) Urine Protein (Negative) Urine Ketones (NEGATIVE) Urine Blood (0-5) John/ul Urine Nitrite (NEGATIVE) Urine Bilirubin (NEGATIVE) Urine Urobilinogen (0-1) mg/dL Ur Leukocyte Esterase (NEGATIVE) Urine WBC (Auto) (0-5) /HPF Urine RBC (Auto) (0-2) /HPF U Epithel Cells (Auto) (FEW) /HPF Urine Bacteria (Auto) (NEGATIVE) /HPF Urine Mucus (Auto) (NEGATIVE) /HPF Urine Culture Reflexed (NO) Urine Glucose (NEGATIVE) mg/dL 07/21/21 Range/Units 21:01 WBC (4.0-10.5) K/mm3 RBC (4.1-5.4) M/mm3 Hgb (12.0-16.0) gm/dl Hct (35-47) % MCV (78-100) fl MCH (26-32) pg MCHC (32-36) g/dl RDW (11.5-14.0) % Plt Count (150-450) K/mm3 MPV (7.5-11.0) fl Gran % (36.0-66.0) % Eos # (Auto) (0-0.5) Absolute Lymphs (auto) (1.0-4.6) Absolute Monos (auto) (0.0-1.3) Lymphocytes % (24.0-44.0) % Monocytes % (0.0-12.0) % Eosinophils % (0.00-5.0) % Basophils % (0.0-0.4) % Absolute Granulocytes (1.4-6.9) Basophils # (0-0.4) Sodium (137-145) mmol/L Potassium (3.5-5.1) mmol/L Chloride (98-107) mmol/L Carbon Dioxide (22-30) mmol/L Anion Gap (5-15) MEQ/L BUN (7-17) mg/dL Creatinine (0.52-1.04) mg/dL Estimated GFR ML/MIN Glucose (74-106) mg/dL Lactic Acid (0.4-2.0) Calcium (8.4-10.2) mg/dL Total Bilirubin (0.2-1.3) mg/dL AST (14-36) U/L ALT (0-35) U/L Alkaline Phosphatase (38-126) U/L Serum Total Protein (6.3-8.2) g/dL Albumin (3.5-5.0) g/dL Amylase (30-110) U/L Lipase (23-300) U/L Urine Color YELLOW (YELLOW) Urine Appearance SLIGHTLY CLOUDY (CLEAR) Urine pH 6.0 (5-6) Ur Specific [place] 1.004 (1.005-1.025) Urine Protein NEGATIVE (Negative) Urine Ketones NEGATIVE (NEGATIVE) Urine Blood NEGATIVE (0-5) John/ul Urine Nitrite POSITIVE (NEGATIVE) Urine Bilirubin NEGATIVE (NEGATIVE) Urine Urobilinogen NEGATIVE (0-1) mg/dL Ur Leukocyte Esterase LARGE (NEGATIVE) Urine WBC (Auto) >100 (0-5) /HPF Urine RBC (Auto) 0-2 (0-2) /HPF U Epithel Cells (Auto) NONE (FEW) /HPF Urine Bacteria (Auto) PACKED (NEGATIVE) /HPF Urine Mucus (Auto) SLIGHT (NEGATIVE) /HPF Urine Culture Reflexed YES (NO) Urine Glucose NEGATIVE (NEGATIVE) mg/dL - Progress Progress: improved, re-examined Progress Note: 07/22/21 01:39 CAT scan of the abdomen the pelvis shows evidence of colitis. No evidence for intra-abdominal abscess. Counseled pt/family regarding: lab results, diagnosis, need for follow-up, rad results - Departure Departure Disposition: Home Clinical Impression: Colitis, Diarrhea, UTI (urinary tract infection) Condition: Stable Critical Care Time: No Referrals: ZAN FAITH [Primary Care Provider] - Follow up/PCP as directed Additional Instructions: Drink plenty of fluids. Take your medication as prescribed. Follow-up with your primary care physician for further management. Return to the emergency department if symptoms worsen. Prescriptions: Ciprofloxacin [Cipro 500 MG] 500 mg PO BID #14 tablet Metronidazole 500 mg [Flagyl 500 MG] 500 mg PO TID #21 tablet
[2021-07-21] MEDS ORDERED: Sodium Chloride 0.9% 1000 ML 1,000 ML IV STA ×2 (21:01→23:56)
[2021-07-21] MEDS ORDERED: Sodium Chloride 0.9% 1000 ML 1,000 ML ONE ×2 (21:05→23:59)
[2021-07-21 21:50] LABS: Absolute Neutrophil Ct (ANC) 5.25 (1.4-6.9); BASOPHIL % 0.4 % (0.0-0.4); Basophil (Absolute #) 0.03 (0-0.4); Eosinophil % 2.2 % (0.00-5.0); Eosinophil (Absolute #) 0.17 (0-0.5); Hemoglobin 11.9 gm/dl (12.0-16.0); Lymphocyte (Absolute #) 1.72 (1.0-4.6); Lymphocytes % 22.4 % (24.0-44.0); Mean Cell Volume 75.4 fl (78-100); Mean Corpuscular Hemoglobin 21.9 pg (26-32); Mean Platelet Volume 10.1 fl (7.5-11.0); Monocytes % 6.5 % (0.0-12.0); Neutrophil % 68.5 % (36.0-66.0); Platelet Count 270 K/mm3 (150-450); Red Blood Count 5.44 M/mm3 (4.1-5.4); Red Cell Distribution Width 21.7 % (11.5-14.0); White Blood Count 7.7 K/mm3 (4.0-10.5)
[2021-07-21 22:07] LABS: ALBUMIN 3.3 g/dL (3.5-5.0); ALKALINE PHOSPHATASE 58 U/L (38-126); AMYLASE 37 U/L (30-110); ANION GAP 9.7 MEQ/L (5-15); BLOOD UREA NITROGEN 8 mg/dL (7-17); CHLORIDE 99 mmol/L (98-107); Carbon Dioxide 29 mmol/L (22-30); Creatinine 1 0.81 mg/dL (0.52-1.04); EST GLOMERULAR FILTRATION RATE > 60.0 ML/MIN; Glucose 97 mg/dL (74-106); LIPASE 45 U/L (23-300); Potassium 3.8 mmol/L (3.5-5.1); SGOT/AST 35 U/L (14-36); SGPT/ALT 40 U/L (0-35); SODIUM 134 mmol/L (137-145); Total Protein 6.6 g/dL (6.3-8.2)
[2021-07-22] MEDS ORDERED: Flagyl 500 MG PO ONE (00:35)
[2021-07-22] MEDS ORDERED: Flagyl 500 MG ONE (00:38)
[2021-07-22 00:51] LABS: Appearance SLIGHTLY CLOUDY (CLEAR); Bacteria PACKED /HPF (NEGATIVE); Bilirubin NEGATIVE (NEGATIVE); Blood NEGATIVE Ery/ul (0-5); Glucose NEGATIVE (NEGATIVE); Ketones NEGATIVE (NEGATIVE); Leukocyte Esterase LARGE (NEGATIVE); Mucus SLIGHT /HPF (NEGATIVE); Nitrite POSITIVE (NEGATIVE); Protein,Urine Dip NEGATIVE (Negative); RBC 0-2 /HPF (0-2); Specific Gravity 1.004 (1.005-1.025); Urobilinogen NEGATIVE mg/dL (0-1); WBC >100 /HPF (0-5)
[2021-07-22] MEDS ORDERED: ROCEPHIN 1 Gm-D5w 50 ml Bag** 1 G/50 ML IVPB IV STA (01:09)
[2021-07-22 01:12] VITALS: O2SAT 95
[2021-07-22] MEDS ORDERED: ROCEPHIN 1 Gm-D5w 50 ml Bag** 1 G/50 ML IVPB IV ONE (01:15)
[2021-07-22 02:14] VITALS: BP 126/71; PULSE 85
--- NOTE | 2021-07-22 08:15 | XRAY ---
Indication: Cramping, nausea, and diarrhea. Multiple contiguous axial images obtained through the abdomen and pelvis without contrast. Comparison: None Lung bases demonstrates minimal subsegmental atelectasis/scarring. No infiltrate or effusion. Heart not enlarged. Noncontrasted stomach and bowel loops appear nonobstructed with normal appendix. Colon is essentially decompressed and unremarkable. Previous cholecystectomy and hysterectomy. 2.5 cm left ovary cyst. No free fluid/air. Remaining liver, pancreas, spleen, adrenal glands, kidneys, ureters, and bladder are unremarkable for noncontrast exam. Mild scattered aortoiliac calcifications without AAA. Osseous structures intact with minimal degenerative changes throughout the lumbar spine and mild degenerative changes of both hips. No ventral or inguinal hernias. Impression: 1. 2.5 cm left ovary cyst and chronic bony findings. 2. Remaining CT abdomen/pelvis without contrast exam is negative. Comment: Preliminary interpretation made by C. No critical discrepancy.
== END 2021-07-22 02:56 | disposition home or self-care (01) ==
LOC: ED 19:45
DX: K52.9 Noninfective gastroenteritis and colitis, unspecified (principal); N39.0 Urinary tract infection, site not specified; I10 Essential (primary) hypertension; K21.9 Gastro-esophageal reflux disease without esophagitis; R53.1 Weakness; E11.42 Type 2 diabetes mellitus with diabetic polyneuropathy; Z79.84 Long term (current) use of oral hypoglycemic drugs; E78.5 Hyperlipidemia, unspecified
CPT/HCPCS: 0097U; 36000; 36415; 74176; 80053; 81001; 82150; 83605; 83690; 85025; 87040; 87086; 96360; 99284; 87077; 87186; J0696; A9270-GY